=== PATIENT | female | born 1950 | race Caucasian/White ===

== ENCOUNTER → 2017-10-23 | Outpatient (CLI) | payer OTHER | END | disposition home or self-care (01) | LOC: CFH 08:55 | PROVIDERS: ATTEND Student in an Organized Health Care Education/Training Program | DX: Z12.31 Encounter for screening mammogram for malignant neoplasm of breast (principal) | CPT/HCPCS: 77067 ==

== ENCOUNTER 2018-10-25 09:08 | Outpatient (CLI) | payer OTHER | END 2018-10-25 23:59 | disposition home or self-care (01) | LOC: CFH 09:08 | PROVIDERS: ATTEND Family Medicine | DX: Z12.31 Encounter for screening mammogram for malignant neoplasm of breast (principal) | CPT/HCPCS: 77067 ==

== ENCOUNTER 2020-12-10 12:50 | Outpatient (CLI) | payer OTHER | END 2020-12-10 23:59 | disposition home or self-care (01) | LOC: CFH 12:50 | DX: Z12.31 Encounter for screening mammogram for malignant neoplasm of breast (principal) ==